=== PATIENT | male | born 1975 | race Caucasian/White ===

== ENCOUNTER 2018-12-31 19:54 | Emergency (ER) | payer MEDICAID, OTHER ==
[2018-12-31] MEDS ORDERED: cloNIDine 0.1 MG Tab PO ONE (20:53)
--- NOTE | 2018-12-31 21:05 | EDM.PDOC ---
ED HPI GENERAL MEDICAL PROBLEM - General Chief Complaint: Respiratory Problem Stated Complaint: COUGH AND CONGESTION SOB Time Seen by Provider: 12/31/18 20:16 Source of Information: Reports: Patient History Limitations: Reports: No Limitations - History of Present Illness INITIAL COMMENTS - FREE TEXT/NARRATIVE: This is a 43-year-old male. He comes in today because he feels like she is got bronchitis because he has phlegm in the back of his throat that he can't seem to cough out. He is constantly clearing his throat. He denies any sinus drainage. He says he really isn't coughing a lot. He said no fever no chills. He has been urinating a lot lately. When he comes in his blood pressure is like 225/125 and when I spoke to the patient it came down to 188/111. We spoke at length about his health and he indicated to me it didn't matter whether he lived a long life or . He is obviously having some depression problems that he admits to. He is morbidly obese and artery has brawny skin changes in his lower extremities. The patient has a daughter but does not see her though he talks to her a lot. She has a mother that I believe he stays with. So when I talked to the patient and indicate that he is depressed he acknowledges this but he denies any suicidal ideation or plan. - Related Data Allergies Allergy/AdvReac Type Severity Reaction Status Date / Time No Known Allergies Allergy Verified 12/31/18 20:04 Home Meds: Home Meds Albuterol/Ipratropium [DuoNeb 3.0-0.5 MG/3 ML] 3 ml .XX Q6H PRN #20 neb [Rx] Amoxicillin/Potassium Clav [Augmentin 875-125 Tablet] 1 each PO BID #20 tablet 01/01/19 [Rx] Losartan [Cozaar] 100 mg PO DAILY #30 tab 01/01/19 [Rx] Past Medical History Respiratory History: Reports: Bronchitis, Recurrent ED ROS GENERAL - Review of Systems Review Of Systems: See Below Constitutional: Denies: Fever, Chills HEENT: Reports: No Symptoms Respiratory: Reports: Cough, Sputum. Denies: Shortness of Breath, Wheezing Cardiovascular: Reports: No Symptoms Endocrine: Reports: No Symptoms GI/Abdominal: Reports: Other (Morbidly obese) : Reports: No Symptoms Musculoskeletal: Reports: No Symptoms Skin: Reports: Other (Brawny skin changes in the lower extremities with pitting edema) Neurological: Reports: No Symptoms Psychiatric: Reports: Depression Hematologic/Lymphatic: Reports: No Symptoms ED EXAM, GENERAL - Physical Exam Exam: See Below Exam Limited By: No Limitations General Appearance: Alert, WD/WN, No Apparent Distress, Obese Eye Exam: Bilateral Eye: Normal Inspection Ears: Normal External Exam, Normal Canal, Normal TMs Nose: Normal Inspection Throat/Mouth: Normal Inspection, Normal Lips, Normal Oropharynx, Normal Voice, No Airway Compromise, Other (He is very dry in the mouth and his sputum is very thick) Head: Normocephalic Neck: Supple Respiratory/Chest: No Respiratory Distress, Lungs Clear, Normal Breath Sounds Cardiovascular: Regular Rate, Rhythm, No Murmur, Tachycardia GI/Abdominal: Other (Morbidly obese and I really cannot feel any organs due to his habitus but he denies any pain on palpation) Extremities: Limited Range of Motion (Secondary to his habitus), Other (He has brawny skin changes in the lower extremities with mild pitting edema noted and this is bilaterally) Neurological: Alert, Oriented Psychiatric: Depressed Mood Skin Exam: Warm, Dry EKG INTERPRETATION EKG Date: 12/31/18 Time: 20:25 EKG Interpretation Comments: Normal sinus rhythm rate of 98, no acute ST or T-wave changes and no ischemia is noted. Course - Vital Signs Last Recorded V/S: Last Vital Signs Temp 98.6 F 12/31/18 20:04 Pulse 102 H 12/31/18 20:04 Resp 20 12/31/18 20:04 BP 188/111 H 12/31/18 20:59 Pulse Ox 98 12/31/18 23:44 - Orders/Labs/Meds Orders: Active Orders 24 hr Category Date Time Status EKG 12 Lead [EKG Documentation Completion] [RC] STAT Care 12/31/18 20:19 Active RT Aerosol Therapy [RC] ASDIRECTED Care 12/31/18 23:34 Active Sodium Chloride 0.9% [Normal Saline] 1,000 ml Med 12/31/18 22:15 Active IV ASDIRECTED Medication Orders Sodium Chloride (Normal Saline) 1,000 mls @ 1,000 mls/hr IV ASDIRECTED JAM Labs: Laboratory Tests 05/12/31/18 12/31/18 Range/Units 20:30 20:30 20:30 WBC 9.85 H (4.23-9.07) K/mm3 RBC 4.68 (4.63-6.08) M/mm3 Hgb 14.1 (13.7-17.5) gm/L Hct 42.4 (40.1-51.0) % MCV 90.6 (79.0-92.2) fl MCH 30.1 (25.7-32.2) pg MCHC 33.3 (32.2-35.5) g/dl RDW Std Deviation 45.5 H (35.1-43.9) fL Plt Count 277 (163-337) K/mm3 MPV 9.4 (9.4-12.3) fl Neut % (Auto) 70.5 H (34.0-67.9) % Lymph % (Auto) 20.9 L (21.8-53.1) % [place] % (Auto) 5.8 (5.3-12.2) % Eos % (Auto) 2.4 (0.8-7.0) Baso % (Auto) 0.2 (0.1-1.2) % Neut # (Auto) 6.94 H (1.78-5.38) K/mm3 Lymph # (Auto) 2.06 (1.32-3.57) K/mm3 [place] # (Auto) 0.57 (0.30-0.82) K/mm3 Eos # (Auto) 0.24 (0.04-0.54) K/mm3 Baso # (Auto) 0.02 (0.01-0.08) K/mm3 Sodium 142 (136-145) mEq/L Potassium 3.6 (3.5-5.1) mEq/L Chloride 105 (98-107) mEq/L Carbon Dioxide 27 (21-32) mEq/L Anion Gap 13.6 (5-15) BUN 15 (7-18) mg/dL Creatinine 1.5 H (0.7-1.3) mg/dL Est Cr Clr Drug Dosing TNP Estimated GFR (MDRD) 51 (>60) mL/min BUN/Creatinine Ratio 10.0 L (14-18) Glucose 105 (74-106) mg/dL Calcium 9.6 (8.5-10.1) mg/dL Total Bilirubin 0.6 (0.2-1.0) mg/dL AST 19 (15-37) U/L ALT 27 (16-63) U/L Alkaline Phosphatase 83 (46-116) U/L Troponin I 0.081 H* (0.00-0.056) ng/mL Total Protein 7.4 (6.4-8.2) g/dl Albumin 3.6 (3.4-5.0) g/dl Globulin 3.8 gm/dL Albumin/Globulin Ratio 1.0 (1-2) Ketones 0.20 (0.0-0.3) mM 12/31/18 Range/Units 23:10 WBC (4.23-9.07) K/mm3 RBC (4.63-6.08) M/mm3 Hgb (13.7-17.5) gm/L Hct (40.1-51.0) % MCV (79.0-92.2) fl MCH (25.7-32.2) pg MCHC (32.2-35.5) g/dl RDW Std Deviation (35.1-43.9) fL Plt Count (163-337) K/mm3 MPV (9.4-12.3) fl Neut % (Auto) (34.0-67.9) % Lymph % (Auto) (21.8-53.1) % [place] % (Auto) (5.3-12.2) % Eos % (Auto) (0.8-7.0) Baso % (Auto) (0.1-1.2) % Neut # (Auto) (1.78-5.38) K/mm3 Lymph # (Auto) (1.32-3.57) K/mm3 [place] # (Auto) (0.30-0.82) K/mm3 Eos # (Auto) (0.04-0.54) K/mm3 Baso # (Auto) (0.01-0.08) K/mm3 Sodium (136-145) mEq/L Potassium (3.5-5.1) mEq/L Chloride (98-107) mEq/L Carbon Dioxide (21-32) mEq/L Anion Gap (5-15) BUN (7-18) mg/dL Creatinine (0.7-1.3) mg/dL Est Cr Clr Drug Dosing Estimated GFR (MDRD) (>60) mL/min BUN/Creatinine Ratio (14-18) Glucose (74-106) mg/dL Calcium (8.5-10.1) mg/dL Total Bilirubin (0.2-1.0) mg/dL AST (15-37) U/L ALT (16-63) U/L Alkaline Phosphatase (46-116) U/L Troponin I 0.083 H* (0.00-0.056) ng/mL Total Protein (6.4-8.2) g/dl Albumin (3.4-5.0) g/dl Globulin gm/dL Albumin/Globulin Ratio (1-2) Ketones (0.0-0.3) mM Meds: Medications Generic Name Dose Route Start Last Admin Trade Name Freq PRN Reason Stop Dose Admin Sodium Chloride 1,000 mls @ 1,000 mls/hr 12/31/18 22:15 Normal Saline IV ASDIRECTED JAM Discontinued Medications Generic Name Dose Route Start Last Admin Trade Name Freq PRN Reason Stop Dose Admin Albuterol/Ipratropium 3 ml 12/31/18 23:33 12/31/18 23:54 Duoneb 3.0-0.5 Mg/3 Ml NEB 12/31/18 23:34 3 ml ONETIME ONE Administration Clonidine HCl 0.3 mg 12/31/18 20:53 12/31/18 20:59 Catapres PO 12/31/18 20:54 0.3 mg ONETIME ONE Administration Hydralazine HCl 20 mg 12/31/18 22:12 12/31/18 22:21 Apresoline IVPUSH 12/31/18 22:13 20 mg ONETIME ONE Administration - Re-Assessments/Exams Free Text/Narrative Re-Assessment/Exam: 01/01/19 00:01 The patient and I have talked on 4 occasions now regarding his blood pressure, he is not interested and dealing with his blood pressure tonight. He states he has bronchitis and is having a hard time breathing and now he tells me that the hard time breathing causes him to have panic attacks. During the time he was here in the ER his pulse ox stayed above 94%. He continued to complain of being short of breath and not being able to cough up his phlegm. After we did a breathing treatment he seemed to state he felt better and he wanted to go home. I explained to him that I would put information for a provider as well as the [facility]. We will give him a rental nebulizer and some treatments take-home and then I'll provide some prescriptions for him. I stressed hardly that he needs to follow-up with a family doctor to get his life turned around since I'm very concerned about his life expectancy. The patient states he understands. 01/01/19 00:24 I spoke to the patient before he left without his second cardiac enzyme being about the same as the first. This was suggested his heart is under a constant strain due to the blood pressure and his weight. I indicated to him that he is a ticking time bomb that if he expects to survive he needs to follow-up with the family provider to get his blood pressure under control and his lifestyle under control. The patient states he understands. Departure - Departure Time of Disposition: 00:02 Disposition: Home, Self-Care 01 Condition: Poor Clinical Impression: Acute bronchitis Qualifiers: Bronchitis organism: unspecified organism Qualified Code(s): J20.9 - Acute bronchitis, unspecified Reactive airway disease Qualifiers: Asthma severity: mild Asthma persistence: persistent Asthma complication type: with acute exacerbation Qualified Code(s): J45.31 - Mild persistent asthma with (acute) exacerbation Hypertension Qualifiers: Hypertension type: essential hypertension Qualified Code(s): I10 - Essential ( primary) hypertension Depression Qualifiers: Depression Type: unspecified Qualified Code(s): F32.9 - Major depressive disorder, single episode, unspecified - Discharge Information *PRESCRIPTION DRUG MONITORING PROGRAM REVIEWED*: Not Applicable *COPY OF PRESCRIPTION DRUG MONITORING REPORT IN PATIENT LINNEA: Not Applicable Prescriptions: Albuterol/Ipratropium [DuoNeb 3.0-0.5 MG/3 ML] 3 ml .XX Q6H PRN #20 neb PRN Reason: Wheezing Amoxicillin/Potassium Clav [Augmentin 875-125 Tablet] 1 each PO BID #20 tablet Losartan [Cozaar] 100 mg PO DAILY #30 tab Instructions: Managing Your Hypertension, Acute Bronchitis, Adult Referrals: Lorrie Melendez PA-C [Phys[facility] [employer]] - Forms: ED Department Discharge Additional Instructions: You were seen in the ER for acute bronchitis and shortness of breath, you are given a prescription for antibiotics and take them faithfully, use the nebulizer machine as needed for the shortness of breath and wheezing, get some Mucinex to help break up the sputum and make sure you continue to drink lots of water. During the time here in the ER you were found to have a very elevated blood pressure, this is dangerous and can cause strokes and heart attacks, I gave you a prescription for a blood pressure medication to start taking but you will have to follow up with the family provider that I have suggested so they can continue the medication and fine tune it to get your blood pressure under control. You also mentioned to me that you were depressed, [facility] can help you in this regard, give their number, , a call and they can make arrangements for you to be seen and helped. Your heart enzyme was found to be slightly elevated suggesting the heart is under a great strain due to the blood pressure and your current lifestyle, this makes it makes it somewhat more serious as far as following up with the family provider so that your heart does not give out due to the strain, this is very important. Please be certain to follow-up with the family provider I have suggested, return to the ER if needed - My Orders Last 24 Hours: My Active Orders 12/31/18 20:19 EKG 12 Lead [EKG Documentation Completion] [RC] STAT 12/31/18 22:15 Sodium Chloride 0.9% [Normal Saline] 1,000 ml IV ASDIRECTED 12/31/18 23:34 RT Aerosol Therapy [RC] ASDIRECTED - Assessment/Plan Last 24 Hours: My Active Orders 12/31/18 20:19 EKG 12 Lead [EKG Documentation Completion] [RC] STAT 12/31/18 22:15 Sodium Chloride 0.9% [Normal Saline] 1,000 ml IV ASDIRECTED 12/31/18 23:34 RT Aerosol Therapy [RC] ASDIRECTED
[2018-12-31] MEDS ORDERED: hydrALAZINE 20 MG/ML SDV IVPUSH ONE (22:12)
[2018-12-31] MEDS ORDERED: Sodium Chloride 0.9% 1,000 ML IV SCH (22:15)
[2018-12-31] MEDS ORDERED: Albuterol/Ipratropium 3.0-0.5 MG/3 ML Neb Soln NEB ONE (23:33)
[2019-01-01] MEDS ORDERED: Albuterol/Ipratropium 3.0-0.5 MG/3 ML Neb Soln NEB ONE (00:26)
== END 2019-01-01 00:32 | disposition home or self-care (01) ==
LOC: JD.ED 19:54
DX: J45.31 Mild persistent asthma with (acute) exacerbation (principal); J20.9 Acute bronchitis, unspecified; I10 Essential (primary) hypertension; F32.9 Major depressive disorder, single episode, unspecified
CPT/HCPCS: 36415; 80053; 82009; 84484; 85025; 93005; 94640; 96361; 96374; 99283; A9270; J0360; J7040; J7620-GY

== ENCOUNTER 2019-01-01 04:42 | Emergency (ER) | payer SELFPAY ==
[~2019-01-01 04:42] MED LIST: Labetalol 100 MG/20 ML MDV ONE
[2019-01-01] MEDS ORDERED: Midazolam 1 MG/ML 5 ML SDV ONE (05:00)
[2019-01-01] MEDS ORDERED: Labetalol 100 MG in Sodium Chloride 0.9% 80 ML IV SCH (05:00)
[2019-01-01] MEDS ORDERED: Rocuronium 50 MG/5 ML Vial ONE (05:00)
[2019-01-01] MEDS ORDERED: Propofol 200 MG/20 ML SDV ONE (05:00)
[2019-01-01] MEDS ORDERED: Succinylcholine 200 MG/10 ML MDV ONE (05:00)
[2019-01-01] MEDS ORDERED: Labetalol 100 MG/20 ML MDV IVPUSH ONE ×3 (05:02→05:15)
--- NOTE | 2019-01-01 05:24 | EDM.PDOC ---
ED HPI GENERAL MEDICAL PROBLEM - General Chief Complaint: Neurological Problem Stated Complaint: [facility] Time Seen by Provider: 01/01/19 04:47 Source of Information: Reports: EMS, Family History Limitations: Reports: Altered Mental Status - History of Present Illness INITIAL COMMENTS - FREE TEXT/NARRATIVE: This is a 43-year-old male. He was seen here early this evening because he wanted to be treated for acute bronchitis and he had phlegm in his throat that he couldn't seem to cough out. As an aside he was noted to have a severe elevated blood pressure of 225/124 when he arrived. We did attempt to give him some medications to bring the blood pressure down and even started an IV and I spoke to him on 4 different occasions about his blood pressure but he didn't want anything done about it and eventually he asked that IV to be removed and he wanted to go home. I talked with him and his parents regarding his need to have his blood pressure well controlled because of he does not he'll have a stroke. He comes back now and a hypertensive crisis and playing of a headache and being confused. The mother states the confusion started about 2:30 this morning. The patient was bumping the alexander couldn't find the bathroom and couldn 't put his CPAP back on when he came off because he was confused on how to do it. He is talking but he doesn't answer questions well. It seems to get his attention he will answer yes and no questions appropriately. He does complain of a headache in the back of his head. Headache Pain Score (Numeric/FACES): 10 - Related Data Allergies Allergy/AdvReac Type Severity Reaction Status Date / Time No Known Allergies Allergy Verified 01/01/19 04:54 Home Meds: Home Meds Albuterol/Ipratropium [DuoNeb 3.0-0.5 MG/3 ML] 3 ml .XX Q6H PRN #20 neb [Rx] Amoxicillin/Potassium Clav [Augmentin 875-125 Tablet] 1 each PO BID #20 tablet 01/01/19 [Rx] Losartan [Cozaar] 100 mg PO DAILY #30 tab 01/01/19 [Rx] Past Medical History Cardiovascular History: Reports: Hypertension Respiratory History: Reports: Bronchitis, Recurrent ED ROS GENERAL - Review of Systems Review Of Systems: Unable To Obtain (I'm unable to obtain that now due to his confusion.) - Physical Exam Exam: See Below Exam Limited By: Altered Mental Status General Appearance: Obese, Other (The patient is awake and restless and at times agitated) Eye Exam: Bilateral Eye: Normal Inspection, Other (There is no disconjugate gaze and the pupils are reactive) Ears: Normal External Exam Nose: Normal Inspection Throat/Mouth: Normal Inspection, No Airway Compromise Head Exam: Normocephalic Neck: Supple Respiratory/Chest: No Respiratory Distress, Lungs Clear, Normal Breath Sounds Cardiovascular: Regular Rate, Rhythm, No Murmur GI/Abdominal: Other (Patient is morbidly obese does not seem to have any tenderness on palpation of his abdomen) Neuro Exam (Abbreviated): Slow to Respond, Other (Patient is awake, he does not appear to be oriented, he is moving all 4 extremities with no difficulty, he is somewhat restless, he will answer some questions appropriately and others he seems to ignore, his full neurological exam is as follows the patient is agitated and restless, he will answer questions that are yes or no in single word answers but he will not give sentences, he does tend to mumble a lot and does have a few incoherent answers, he moves his neck with no difficulty, he is moving all his upper extremities with no difficulty he did at one time squeeze my fingers when I asked him to but it was inconsistent though he could do it, his lower extremities he moves them and responded to pain to his lower extremities and his upper extremities with withdrawal, he had no decerebrate or decorticate posturing, he had no disconjugate gaze and his pupils were sluggishly reactive.) Extremities: Other (He is noted to have venous insufficiency of the lower extremities with brawny skin changes) Psychiatric: Anxious Skin Exam: Warm, Dry EKG INTERPRETATION EKG Date: 01/01/19 Time: 05:00 EKG Interpretation Comments: EKG shows a normal sinus rhythm rate of 78, there is no acute ST or T-wave changes, there is no ischemia noted. Course - Vital Signs Last Recorded V/S: Last Vital Signs Temp 98.1 F 01/01/19 04:42 Pulse 65 01/01/19 06:58 Resp 16 01/01/19 06:58 BP 116/61 01/01/19 06:58 Pulse Ox 94 L 01/01/19 06:58 - Orders/Labs/Meds Orders: Active Orders 24 hr Category Date Time Status EKG Documentation Completion [RC] URGENT Care 01/01/19 05:00 Active Chest 1V-Tube Placement Chk NC [CR] Stat Exams 01/01/19 06:18 Taken Chest 1V-Tube Placement Chk NC [CR] Stat Exams 01/01/19 06:22 Taken Head wo Cont [CT] Stat Exams 01/01/19 04:49 Taken Labs: Laboratory Tests 01/01/19 01/01/19 01/01/19 Range/Units 04:46 04:46 04:46 WBC 10.67 H (4.23-9.07) K/mm3 RBC 4.95 (4.63-6.08) M/mm3 Hgb 14.9 (13.7-17.5) gm/L Hct 44.7 (40.1-51.0) % MCV 90.3 (79.0-92.2) fl MCH 30.1 (25.7-32.2) pg MCHC 33.3 (32.2-35.5) g/dl RDW Std Deviation 46.1 H (35.1-43.9) fL Plt Count 255 (163-337) K/mm3 MPV 9.3 L (9.4-12.3) fl Neut % (Auto) 78.9 H (34.0-67.9) % Lymph % (Auto) 14.6 L (21.8-53.1) % [place] % (Auto) 5.1 L (5.3-12.2) % Eos % (Auto) 1.0 (0.8-7.0) Baso % (Auto) 0.2 (0.1-1.2) % Neut # (Auto) 8.42 H (1.78-5.38) K/mm3 Lymph # (Auto) 1.56 (1.32-3.57) K/mm3 [place] # (Auto) 0.54 (0.30-0.82) K/mm3 Eos # (Auto) 0.11 (0.04-0.54) K/mm3 Baso # (Auto) 0.02 (0.01-0.08) K/mm3 PT 10.3 (9.5-12.1) SECONDS INR 0.94 Sodium 140 (136-145) mEq/L Potassium 3.3 L (3.5-5.1) mEq/L Chloride 103 (98-107) mEq/L Carbon Dioxide 26 (21-32) mEq/L Anion Gap 14.3 (5-15) BUN 13 (7-18) mg/dL Creatinine 1.3 (0.7-1.3) mg/dL Est Cr Clr Drug Dosing 79.59 mL/min Estimated GFR (MDRD) 60 (>60) mL/min BUN/Creatinine Ratio 10.0 L (14-18) Glucose 136 H (74-106) mg/dL Calcium 9.2 (8.5-10.1) mg/dL Total Bilirubin 0.9 (0.2-1.0) mg/dL AST 22 (15-37) U/L ALT 27 (16-63) U/L Alkaline Phosphatase 80 (46-116) U/L Troponin I 0.081 H* (0.00-0.056) ng/mL Total Protein 8.0 (6.4-8.2) g/dl Albumin 3.9 (3.4-5.0) g/dl Globulin 4.1 gm/dL Albumin/Globulin Ratio 1.0 (1-2) Meds: Medications Discontinued Medications Generic Name Dose Route Start Last Admin Trade Name Vickie PRN Reason Stop Dose Admin Labetalol HCl 100 mg/ Sodium 100 mls @ 30 mls/hr 01/01/19 05:00 01/01/19 05: 13 Chloride IV 0.5 mg/min TITRATE JAM 30 mls/hr Administration Protocol 0.5 MG/MIN Sodium Nitroprusside 50 mg/ 250 mls @ 163.29 mls/hr 01/01/19 05:30 Dextrose/Water IV TITRATE JAM Protocol 3 MCG/KG/MIN Nicardipine HCl 25 mg/ Sodium 260 mls @ 52 mls/hr 01/01/19 05:30 Chloride IV TITRATE JAM Protocol 5 MG/HR Propofol Confirm 01/01/19 06:01 Diprivan 100 Ml Administered 01/01/19 06:02 Dose 100 mls @ as directed .ROUTE .STK-MED ONE Propofol Confirm 01/01/19 06:02 Diprivan 100 Ml Administered 01/01/19 06:03 Dose 100 mls @ as directed .ROUTE .STK-MED ONE Labetalol HCl 20 mg 01/01/19 05:02 01/01/19 04:45 Normodyne IVPUSH 01/01/19 05:03 20 mg ONETIME ONE Administration Protocol Labetalol HCl 20 mg 01/01/19 05:04 01/01/19 05:05 Normodyne IVPUSH 01/01/19 05:05 20 mg ONETIME ONE Administration Protocol Labetalol HCl 20 mg 01/01/19 05:15 01/01/19 05:16 Normodyne IVPUSH 01/01/19 05:16 20 mg ONETIME ONE Administration Protocol Lorazepam 0.5 mg 01/01/19 05:30 01/01/19 05:47 Ativan IVPUSH 01/01/19 05:31 0.5 mg ONETIME ONE Administration - Radiology Interpretation Free Text/Narrative:: CT scan showed a acute intraventricular hemorrhage resin both lateral ventricles especially the right and is going to the third ventricle and the central aqueduct but there is no brain midline shift or tentorial downward herniation of the brain. - Re-Assessments/Exams Free Text/Narrative Re-Assessment/Exam: 01/01/19 05:49 I spoke to the mother regarding the intraventricular bleed and that he is going to have to go either to [place] or [place] for care of this bleed. I indicated it is this is serious and he can cause future complications but in the right hands he can get the best care and that would be in [place]. The mother is good with this. I explained the critical and seriousness of this condition of her son. 01/01/19 06:10 While I was speaking to the neurosurgeon Dr. Gonzalez the patient's sats and heart rate dropped while they were intubating him and he momentarily lost his pulse they started CPR without medications and being intubated with good chest movement his pulse came back and his blood pressure was 119/64. Will continue to sedate him with propofol and consider transfer by flight. 01/01/19 06:[address] Gonzalez and noted that his pulse was 66 on labetalol drip and he suggested that we put him on a nicardipine drip instead to control the blood pressure and it won't affect the heart rate. The flight crew is here presently and we're beginning to secure the tube and packaged the patient to be flown down to [place] in [place]. Dr. Gonzalez is the accepting physician for this patient. 01/01/19 06:25 The patient now is sedated and on a propofol drip the blood pressure is now around 112/60. The patient is quiet and peaceful and bagging the patient is without difficulty. 01/01/19 06:34 [facility] is Packaging the patient. I have spoken to the mother regarding his other son's condition and she is going to see her son prior to [place] [facility] taking the patient to the fixed wing. 01/01/19 06:48 The patient now is peaceful his O2 sat is running 94% his CO2 is 40 his blood pressure is 115/62 his pulse is 61. I am pleased with these parameters. We are waiting for the fixed wing to land so we can take him to the airport for transfer to [place]. I did bring the mother and his father into the room and explained how everything went and what to expect when he gets to [place]. There able to stand by him and be with him for as long as they wanted. 01/01/19 07:25 Patient left the ER without complications. He is intubated. He is on a propofol drip as well as a labetalol drip. His vitals remain good. Departure - Departure Time of Disposition: 06:33 Disposition: DC/Tfer to Acute Hospital 02 Condition: Critical Clinical Impression: Intraventricular hemorrhage, Hypertensive crisis - Discharge Information Referrals: PCP,None [Primary Care Provider] - ED Communication - ED Communication Date/Time Date: 01/01/19 Time Called: 06:34 - Discussed Case With (1) Discussed Case With (1): Admitting Provider Person/s Notified (1): Dr. Gonzalez (He agrees to accept the patient to [facility]) - My Orders Last 24 Hours: My Active Orders 01/01/19 04:49 Head wo Cont [CT] Stat 01/01/19 05:00 EKG Documentation Completion [RC] URGENT 01/01/19 06:18 Chest 1V-Tube Placement Chk NC [CR] Stat 01/01/19 06:22 Chest 1V-Tube Placement Chk NC [CR] Stat - Assessment/Plan Last 24 Hours: My Active Orders 01/01/19 04:49 Head wo Cont [CT] Stat 01/01/19 05:00 EKG Documentation Completion [RC] URGENT 01/01/19 06:18 Chest 1V-Tube Placement Chk NC [CR] Stat 01/01/19 06:22 Chest 1V-Tube Placement Chk VAHE [CR] Stat
[2019-01-01] MEDS ORDERED: Nitroprusside 50 MG in Dextrose 5% in Water 248 ML IV SCH ×2 (05:30)
[2019-01-01] MEDS ORDERED: LORazepam 2 MG/ML SDV IVPUSH ONE (05:30)
[2019-01-01] MEDS ORDERED: niCARdipine HCl 25 MG in Sodium Chloride 0.9% 250 ML IV SCH (05:30)
--- NOTE | 2019-01-03 10:04 | CR ---
Chest: Portable supine view of the chest was obtained centered to the mid and right chest. Portions of the left chest are not included on the study. Comparison: No prior chest x-ray. Tubing appears to be coiled within the hypopharynx. No tubing is seen within the mediastinum. Heart is slightly enlarged. Pulmonary vessels are mildly congested. Impression: 1. Tubing coiled within the hypopharynx. 2. Findings suspicious for mild neurogenic pulmonary edema. Diagnostic code #3
--- NOTE | 2019-01-03 10:04 | CR ---
Chest: Portable supine view of the chest was obtained. Comparison: Prior chest x-ray performed earlier on the same day (6:11 AM). Heart is enlarged. Upper mediastinum is normal. Endotracheal tube is seen. Tip lies slightly below the inferior clavicles in satisfactory position. Pulmonary vessels remain congested. Impression: 1. Satisfactory position of endotracheal tube. 2. Possible mild neurogenic pulmonary edema again noted. Diagnostic code #3
--- NOTE | 2019-01-03 10:51 | CT ---
Head CT Technique: Multiple axial sections through the brain were obtained. Intravenous contrast was not utilized. Comparison: No prior intracranial imaging is available. Findings: Blood is identified within the intraventricular area within the right lateral ventricle extending into the occipital horn and atria. Smaller amount of blood is seen within the dependent portion of the left lateral ventricle within the occipital horn. Blood also noted within the third ventricle. Blood also noted within the aqueduct of Sylvius. No parenchymal hemorrhage is seen. There is some artifact due to motion. No midline shift or mass effect is seen. Ventricles are slightly dilated suggesting possible obstructing hydrocephalus. Bone window settings were reviewed which show no acute calvarial abnormality. Visualized sinuses are clear. Impression: 1. Acute intraventricular blood within the lateral ventricles, third ventricle and aqueduct of Sylvius. Blood felt to cause mild obstructing hydrocephalus. Etiology of this blood is not identified on this exam. 2. Motion artifact. 3. No additional abnormality is appreciated. Diagnostic code #5 I agree with preliminary report from [facility], finalized on 01/03/19, 6:28 AM Central Time
== END 2019-01-01 07:21 ==
LOC: JD.ED 04:42
DX: I61.5 Nontraumatic intracerebral hemorrhage, intraventricular (principal); I16.9 Hypertensive crisis, unspecified
CPT/HCPCS: 31500; 36415; 51702; 70450; 80053; 84484; 85025; 85610; 92950; 93005; 96365; 96366; 96368; 96375; 96376; 99291; 99292; J0330; J2060; J2250; J2704; J3490; J7030; J7050; 93010; 99285